=== PATIENT | male | born 1960 | race Caucasian/White ===

== ENCOUNTER → 2021-05-04 15:32 | Outpatient (CLI) | payer MEDICAID, SELFPAY ==
--- NOTE | 2021-05-04 15:44 | RAD_ITS ---
History: cad EXAMINATION/TECHNIQUE: XR Chest 2 Views: COMPARISON: None FINDINGS: LINES/DEVICES: None. LUNGS: No consolidation, edema or effusion. No pneumothorax. MEDIASTINUM AND CARDIOVASCULAR STRUCTURES: Cardiac silhouette not enlarged. Central airways and mediastinal contour are unremarkable. BONES AND SOFT TISSUES: Unremarkable. RAD/Chest PA and Lateral IMPRESSION: No radiographic evidence of acute cardiopulmonary disease. at 1706 Reported and signed by: Joe Turpin MD Electronically Signed: Joe Turpin MD at 17:05 EST Tel , Service support ,
[2021-05-04 16:20] LABS: Absolute Lymphocyte Count 2.55 X10^3/uL (0.83-4.51); Absolute Neutrophil Count 3.1 X10^3/uL (2.0-7.7); Basophil# 0.02 X10^3/uL; Basophil% 0.3 % (0-1); Eosinophil# 0.09 X10^3/uL; Eosinophils% 1.5 % (0-5); Hematocrit 39.5 % (40-54); Hemoglobin 13.2 g/dL (13.0-16.5); Lymphocyte # 2.55 X10^3/ul (0.83-4.51); Lymphocyte % 41.1 % (19-41); Mean Corp Hgb Conc 33.4 g/dL (32-36); Mean Corpuscular Hgb 30.9 pg (27.0-32.0); Mean Corpuscular Volume 92.5 fL (80-94); Mean Platelet Vol. 9.6 fl (6.2-12.0); Monocyte# 0.41 X10^3/uL; Monocyte% 6.6 % (0-10); NRBC Flagged by Analyzer 0 % (0-5); Neutrophil # 3.12 X10^3/uL (2.7-7.7); Neutrophil % 50.3 % (47-70); Platelet Count 214 K/mm3 (150-450); Red Blood Count 4.27 M/mm3 (4.6-6.2); White Blood Count 6.2 K/mm3 (4.4-11.0)
[2021-05-04 16:44] LABS: Anion Gap 5 (5-15); BUN 15 mg/dL (7-18); BUN/Creat Ratio 11.3 RATIO (10-20); Calcium,Total 9.3 mg/dL (8.5-10.1); Chloride 110 mmol/L (98-107); Creatinine, Serum 1.33 mg/dL (0.70-1.30); EST Glomerular Filtration Rate 58 mL/min (>60); Est Glom Filt Rate - Afr Amer 70 mL/min (>60); Glucose 93 mg/dL (74-106); Potassium 4.3 mmol/L (3.5-5.1); Sodium Level 142 mmol/L (136-145)
== END ==
PROVIDERS: PCP Preventive Medicine Occupational Medicine; Referring Provider Internal Medicine Cardiovascular Disease; Visit Provider Internal Medicine Cardiovascular Disease
DX: R07.9 Chest pain, unspecified (principal); I10 Essential (primary) hypertension; Z95.5 Presence of coronary angioplasty implant and graft
CPT/HCPCS: 36415; 71046; 80048; 85025

== ENCOUNTER 2021-05-14 08:42 | Day surgery (SDC) | payer MEDICAID, SELFPAY ==
[2021-05-10 09:59] VITALS: BMI 25.8
--- NOTE | 2021-05-14 11:55 | CL.D_ITS ---
Patient Name: MADY FLORES I Study Date: 05/14/2021 Performing: Rashaun Hernandez MD Ht: 68.89 inches 175 cm : 1960 Wt: 174.17 lbs 79 kg Age: 60 Gender: male BSA: 1.95 PROCEDURE(S) PERFORMED DC01-(25901)LHC/COR/LV CLINICAL PROFILE AND INDICATIONS Indications: Suspected CAD Heart Failure: None Stress/Imaging Date: 04/05/2021tress Test with SPECT MPI: Positive Low Risk CAD Presentations: Unstable angina. CONCLUSIONS Previously placed stent patent in LAD with ostial diagonal RECOMMENDATIONS Medical therapy DESCRIPTION OF PROCEDURE The patient arrived to the procedure lab. The risks and benefits of the procedure as well as a full d escription of our services here and current unavailability of surgical backup were fully explained to the patient and/or their significant other prior to the catheterization. The Timeout was completed, verifying the correct patient and procedure. The patient's procedural site was prepped and draped in the usual fashion. Local anesthetic was given subcutaneously to right radial region with Lidocaine 2% . Using a modified Seldinger technique, arterial access was obtained via the right radial artery, a 6 Fr sheath was inserted. Right Coronary Artery selective angiography was then performed in multiple v iews using a 5 Fr. 4.0 Delavan catheter. Left Coronary Artery selective angiography was performed in mu ltiple views using a 5 Fr. 4.0 Delavan catheter. Left Ventriculography was performed in ROLDAN projection using a 5 Fr. Pigtail catheter. LV to AO pullback pressures were then recorded.The arterial sheath was pulled and a TR Band was applied for hemostasis - 10cc air CORONARY ANGIOGRAPHY DOMINANCE: Right Dominant LEFT HEART ASSESSMENT Left Ventricular Ejection Fraction: by LV Gram 70 % Normal LV wall motion Normal Left Ventricular systolic function LEFT MAIN: Angiographically normal LEFT ANTERIOR DESCENDING ARTERY: MID LAD: Previously placed stent is patent DIAGONAL 1: Ostial - 80 % Stenosis CIRCUMFLEX ARTERY: Mild luminal irregularities RIGHT CORONARY ARTERY: Mild luminal irregularities less than 30% COMPLICATIONS No Complications PROCEDURE MEDICATIONS Fentanyl 50 mcg IV Versed 1 mg IV Oxygen: 2 L/min via nasal cannula Heparin given IA 05/14/2021 10:52:11 Verapamil 2.5mg, Ntg 100mcgs, 3000 units of Heparin given IA 05/14/2021 10:52:11 SUMMARY OF HEMODYNAMIC DATA Time AIR REST ECG 09:06:57 AO 141/78 (102) SA 10:54:27 LV 153/20, 36 11:08:11 LV 156/20, 30 11:08:19 LV 162/23, 35 11:09:23 LV 160/23, 34 11:09:29 LVp 147/24, 32 11:09:37 AOp 154/79 (110) 11:09:42 RM AIR REST 11:22:13 Signed By Rashaun Hernandez MD On 05/14/2021 11:54:47 AM Rashaun Hernandez MD
== END 2021-05-14 12:50 | disposition home or self-care (01) ==
LOC: CLSP 08:44
PROVIDERS: PCP Preventive Medicine Occupational Medicine; Referring Provider Internal Medicine Cardiovascular Disease; Visit Provider Internal Medicine Cardiovascular Disease
DX: I25.110 Atherosclerotic heart disease of native coronary artery with unstable angina pectoris (principal); J44.9 Chronic obstructive pulmonary disease, unspecified; I10 Essential (primary) hypertension; I73.9 Peripheral vascular disease, unspecified; K21.9 Gastro-esophageal reflux disease without esophagitis; F32.A Depression, unspecified; F17.200 Nicotine dependence, unspecified, uncomplicated; Z79.02 Long term (current) use of antithrombotics/antiplatelets; Z79.82 Long term (current) use of aspirin; Z79.890 Hormone replacement therapy; Z98.62 Peripheral vascular angioplasty status; Z95.5 Presence of coronary angioplasty implant and graft
CPT/HCPCS: 93458; 99152; 99153; J7040; Q9967; C1769; C1894

== ENCOUNTER 2021-07-04 08:03 | Outpatient (CLI) | payer MEDICAID, SELFPAY ==
--- NOTE | 2021-07-04 08:25 | RAD_ITS ---
STUDY: X-RAY CHEST REASON FOR EXAM: Male, 60 years old. CHEST PAIN SOB / SOA COMPARISON: 05/04/2021 TECHNIQUE: XR Chest 2 Views FINDINGS: There is no demonstrated pleural abnormality. Normal heart size. Normal mediastinum and jessy. Normal visualized pulmonary arteries. There is atherosclerotic calcification of the aortic arch with tortuosity. There is no demonstrated abnormality of the visualized soft tissue structures of the upper abdomen. RAD/Chest PA and Lateral IMPRESSION: There are no acute findings. Electronically Signed: Bryson Turk MD at 16:06 EST Reading Location ID and State: [facility] / [place] , Service support ,
[2021-07-04 08:36] LABS: Hematocrit 40.7 % (40-54); Hemoglobin 13.8 g/dL (13.0-16.5); Mean Corp Hgb Conc 33.9 g/dL (32-36); Mean Corpuscular Hgb 31.6 pg (27.0-32.0); Mean Corpuscular Volume 93.1 fL (80-94); Mean Platelet Vol. 9.5 fl (6.2-12.0); Platelet Count 200 K/mm3 (150-450); RBC Distribution Width CV 12.9 % (11.6-14.6); RBC Distribution Width SD 44.3 fl (35.1-43.9); Red Blood Count 4.37 M/mm3 (4.6-6.2); White Blood Count 6.6 K/mm3 (4.4-11.0)
[2021-07-04 08:54] LABS: BNP,B-Type NATRIURETIC PEPTIDE 35.7 pg/mL (0-100)
[2021-07-04 08:58] LABS: Anion Gap 6 (5-15); BUN 14 mg/dL (7-18); BUN/Creat Ratio 11.1 RATIO (10-20); Calcium,Total 8.8 mg/dL (8.5-10.1); Chloride 104 mmol/L (98-107); Creatinine, Serum 1.26 mg/dL (0.70-1.30); EST Glomerular Filtration Rate 62 mL/min (>60); Est Glom Filt Rate - Afr Amer 74 mL/min (>60); Glucose 107 mg/dL (74-106); Potassium 4.7 mmol/L (3.5-5.1); Sodium Level 137 mmol/L (136-145)
== END 2021-07-04 23:59 | disposition home or self-care (01) ==
LOC: LAB 08:04
PROVIDERS: PCP Preventive Medicine Occupational Medicine; Referring Provider Nurse Practitioner Family; Visit Provider Nurse Practitioner Family
DX: R06.02 Shortness of breath (principal); I25.10 Atherosclerotic heart disease of native coronary artery without angina pectoris; R00.2 Palpitations; I10 Essential (primary) hypertension
CPT/HCPCS: 36415; 71046; 80048; 83880; 85027

== ENCOUNTER 2022-01-07 17:10 | Observation (INO) | payer MEDICAID, SELFPAY ==
[2022-01-07] VITALS (7 sets, daily range): BP systolic 130–171; BP diastolic 66–84; PULSE 61–86; RESP 16–18; TEMP 36.6–37.1; O2SAT 96–100; BMI 24.8
--- NOTE | 2022-01-07 17:09 | EKG12_ITS ---
Test Reason : ADMIT EKG Blood Pressure : / mmHG Vent. Rate : 070 BPM Atrial Rate : 070 BPM P-R Int : 142 ms QRS Dur : 072 ms QT Int : 404 ms P-R-T Axes : 056 037 060 degrees QTc Int : 436 ms Normal sinus rhythm Normal ECG Confirmed by KIRK QUEEN, PATRICIA ([id number]), graphic editor EVER GONZALEZ ([id number]) on 01/09/2022 11:35:59 AM Referred By: Confirmed By:PATRICIA BRADLEY MD
--- NOTE | 2022-01-07 17:18 | PCM.HP.STD ---
Documented by User: BYRON Alcaraz 01/07/22 17:29 HPI - General General Date of Admission: 01/07/22 Date of Service: 01/07/22 Chief Complaint: Chest pain HPI Narrative MADY FLORES, is a 61 M who presents from [facility] where patient presented with chest pain. Patient states that he has had increased chest pain over the past 2 days mostly on the left side and it has radiated to his back at times. Patient states that he is also been coughing more than normal and has been coughing clear white thick sputum. Patient had complete cardiac work-up at [facility] ER. Troponins were 27, 28 and 30. Patient D-dimer elevated at outside facility and a subsequent CT chest and abdomen was obtained which showed no PE however it was positive for bilateral infiltrates. As well as central bronchial wall thickening. Patient reports that he has a history of COPD, CAD, PAD, hyperlipidemia, hypertension, depression and anxiety. Patient was transferred to [facility] for further evaluation of chest pain as patient is established here with [facility] and has had his cardiac care here previously. [facility] Medical History Atherosclerotic heart disease of [place] coronary artery without angina pectoris COPD (chronic obstructive pulmonary disease) Depression Essential hypertension Former smoker GERD (gastroesophageal reflux disease) Peripheral vascular occlusive disease Tobacco dependence Home Medications aspirin 81 mg tablet,delayed release (Adult Low Dose Aspirin) 81 mg PO DAILY 05/04/21 [History Last Taken 05/14/21] atorvastatin 80 mg tablet 80 mg PO QHS 05/04/21 [History Last Taken Unknown] clopidogrel 75 mg tablet 75 mg PO DAILY 05/04/21 [History Last Taken 05/14/21] fluticasone 250 mcg-salmeterol 50 mcg/dose blistr powdr for inhalation 1 inh inhalation PRN PRN Congestion 05/04/21 [History Last Taken Unknown] pantoprazole 40 mg tablet,delayed release 40 mg PO BID gerd 05/04/21 [History Last Taken 05/14/21] quetiapine 200 mg tablet 200 mg PO DAILY anxiety 05/04/21 [History Last Taken Unknown] venlafaxine 150 mg tablet,extended release 24 hr 150 mg PO DAILY anxiety/depression 05/04/21 [History Last Taken Unknown] clonazepam 0.5 mg tablet 0.5 mg PO TID PRN Anxiety 11/27/21 [History Last Taken Unknown] levothyroxine 88 mcg tablet 88 mcg PO DAILY thyroid 11/27/21 [History Last Taken Unknown] atenolol 25 mg tablet 25 mg PO DAILY #90 tabs 12/13/21 [Rx Last Taken Unknown] Allergy/AdvReac Type Severity Reaction Status Date / Time ranolazine [From Ranexa] AdvReac Intermediate OK with Verified 11/27/21 13:44 500 mg bid, but 1000 mg made him SOB Surgical History History of angioplasty of peripheral vessel (2009) History of cholecystectomy History of coronary artery stent placement (10/06/19) History of left heart catheterization (05/14/21) S/P femoral-femoral bypass surgery (09/2012) Social History Smoking Status: Former smoker how long ago did patient quit smoking: August 2020 alcohol intake: never substance use type: does not use caffeine: Yes Type: coffee Number of servings: 2 ROS Constitutional Constitutional: Denies anorexia, chills, fatigue, fever(s), malaise or weakness Cardiovascular Cardiovascular: Reports chest pain; Denies edema, palpitations or syncope Respiratory/Chest Respiratory/Chest: Reports cough and wheezing; Denies shortness of breath at rest or shortness of breath with exertion Gastrointestinal Gastrointestinal: Denies abdominal pain, constipation, diarrhea, nausea or vomiting Genitourinary Genitourinary: Denies dysuria Musculoskeletal Musculoskeletal: Denies back pain, extremity pain, joint pain or joint stiffness Integumentary Integumentary: Denies dry skin Neurologic Neurologic: Denies abnormal gait, abnormal speech, confusion, dizziness or focal weakness Psychiatric Psychiatric: Denies anxiety or depression Endocrine Endocrinology: Denies change in body appearance Hematologic/Lymphatic Hematologic/Lymphatic: Denies anemia Vital Signs Vital Signs Vital Signs: Weight Weight: 168 lb 8 oz Body Mass Index (BMI) 24.8 Physical Exam Const alert, oriented x3 and no apparent distress General Appearance: cooperative HEENT normocephalic and head/scalp atraumatic Eyes conjunctivae normal and no scleral icterus Neck supple General: trachea midline Resp normal respiratory effort and normal air movement Auscultation: wheezes left lower, anterior and posterior Cardio regular rate, regular rhythm, S1 normal heart sound and S2 normal heart sound GI normal to inspection, nondistended, normoactive bowel sounds, soft to palpation and non-tender Extremity normal capillary refill and no clubbing, cyanosis or edema Skin General Skin Exam: no breakdown Lesions: no lesions Rashes: no rashes Neuro no focal motor deficits and no sensory deficits noted Speech: speech normal Psych thought process normal, cooperative and affect normal Assessment & Plan Assessment/Plan (1) Pneumonia: (2) Hyperlipidemia: (3) Essential hypertension: (4) Peripheral vascular occlusive disease: (5) Atherosclerotic heart disease of [place] coronary artery without angina pectoris: PLAN: Plan 1. Chest pain -Admit to PCU -PE ruled out, likely pneumonia but as it patient has a cardiac history will continue to trend troponins overnight -Azithromycin and ceftriaxone given at outside ER, will continue -Scheduled and as needed breathing treatments ordered, hold home inhalers -Oxygen per protocol, currently on room air -Sputum culture ordered -CBC and BMP ordered for a.m. -Mucinex ordered -Chest x-ray and EKG ordered for a.m. -Cardiac diet -Encourage incentive spirometry 2. COPD -Hold home inhalers -See #1 3. Hypertension -Continue atenolol -As needed hydralazine -Vital signs per protocol 4. CAD/PVD -Continue aspirin and Plavix 5. Hyperlipidemia -Continue atorvastatin 6. Hypothyroidism -TSH in a.m. -Continue levothyroxine 7. Anxiety and depression -Continue home regimen including clonazepam, Seroquel, Effexor DVT prophylaxis-subcu Lovenox This patient was seen by Cristine Arrieta NP-C under the supervision of Dr. Albright. 29 minutes spent in clinical coordination of patient's plan of care. Documented by User: Dr. Sammi Albright MD 01/07/22 18:21 HPI - General General Date of Admission: 01/07/22 [facility] Medical History Atherosclerotic heart disease of [place] coronary artery without angina pectoris COPD (chronic obstructive pulmonary disease) Depression Essential hypertension Former smoker GERD (gastroesophageal reflux disease) Peripheral vascular occlusive disease Tobacco dependence Home Medications aspirin 81 mg tablet,delayed release (Adult Low Dose Aspirin) 81 mg PO DAILY 05/04/21 [History Last Taken 05/14/21] atorvastatin 80 mg tablet 80 mg PO QHS 05/04/21 [History Last Taken Unknown] clopidogrel 75 mg tablet 75 mg PO DAILY 05/04/21 [History Last Taken 05/14/21] fluticasone 250 mcg-salmeterol 50 mcg/dose blistr powdr for inhalation 1 inh inhalation PRN PRN Congestion 05/04/21 [History Last Taken Unknown] pantoprazole 40 mg tablet,delayed release 40 mg PO BID gerd 05/04/21 [History Last Taken 05/14/21] quetiapine 200 mg tablet 200 mg PO DAILY anxiety 05/04/21 [History Last Taken Unknown] venlafaxine 150 mg tablet,extended release 24 hr 150 mg PO DAILY anxiety/depression 05/04/21 [History Last Taken Unknown] clonazepam 0.5 mg tablet 0.5 mg PO TID PRN Anxiety 11/27/21 [History Last Taken Unknown] levothyroxine 88 mcg tablet 88 mcg PO DAILY thyroid 11/27/21 [History Last Taken Unknown] atenolol 25 mg tablet 25 mg PO DAILY #90 tabs 12/13/21 [Rx Last Taken Unknown] Allergy/AdvReac Type Severity Reaction Status Date / Time ranolazine [From Ranexa] AdvReac Intermediate OK with Verified 11/27/21 13:44 500 mg bid, but 1000 mg made him SOB Surgical History History of angioplasty of peripheral vessel (2009) History of cholecystectomy History of coronary artery stent placement (10/06/19) History of left heart catheterization (05/14/21) S/P femoral-femoral bypass surgery (09/2012) Social History Smoking Status: Former smoker how long ago did patient quit smoking: August 2020 alcohol intake: never substance use type: does not use caffeine: Yes Type: coffee Number of servings: 2 Assessment & Plan Assessment/Plan (1) Pneumonia: (2) Hyperlipidemia: (3) Essential hypertension: (4) Peripheral vascular occlusive disease: (5) Atherosclerotic heart disease of [place] coronary artery without angina pectoris: Charges/Coding Addendum Addendum: Patient seen by Cristine MATTHEWS under my supervision Patient is a 61-year-old male with past medical history as outlined including CAD s/p stents was admitted as a direct transfer from outside hospital with complaint of chest pain. He said chest pain started in the early hours of the day of admission and was left-sided and radiated to his back. It was persistent so he went to the ED at outside hospital. He admitted to associated shortness of breath and a cough which was productive of clear sputum. He denied any palpitations or dizziness or fever or chills. Review of systems otherwise negative. D-dimer at outside hospital was elevated and a CTA of the chest that showed no evidence of PE but showed evidence of bilateral infiltrates and emphysema as well as central bronchial wall thickening. Initial high-sensitivity troponin was 27 and naldo to 28 and peaked at 30. He was given a dose of therapeutic Lovenox at outside hospital due to concern for non-STEMI. CBC showed WBC of 7.1 in outside hospital. EKG showed no acute ST changes. He was started on IV ceftriaxone and azithromycin and transferred to [facility] for further management. O/E: Const alert, oriented x3 and no apparent distress General Appearance: cooperative HEENT normocephalic, head/scalp atraumatic, hearing grossly normal bilaterally and moist oral mucous membranes Eyes PERRL, EOMs intact bilaterally and conjunctivae normal Neck no lymphadenopathy, supple and no JVD Resp mildly diminished breath sounds bibasally, no wheezes or crackles. On room air Cardio regular rate, regular rhythm, S1 normal heart sound, S2 normal heart sound and no murmurs GI normal to inspection, nondistended, normoactive bowel sounds and soft to palpation GI Narrative: abdominal dressing over surgical site Extremity normal to inspection, full ROM and no clubbing, cyanosis or edema Skin no rashes or lesions noted Neuro oriented x3, CN's II-XII intact bilaterally and moves all extremities Sensorium / Orientation: awake and alert Psych affect normal Assessment and plan #Chest pain to rule out ACS did have some chest pain, but it seems more due to probable pneumonia/bronchitis as it is pleuritic CTA at outside hospital was negative for PE admit to PCU cycle troponins; they were 27, 28 and 30 at outside hospital start on IV ceftriaxone and azithromycin urine for strep and legionella antigens; check CBC, BMP sputum cultures hydrate gently with IVF #Community acquired pneumonia vs bronchitis: as above #COPD: not in exacerbation. Breathing treatment with bronchodilators. Titrate oxygen to maintain sats >90% #CAD s/p stents: on aspirin, statin and atenolol #History of PAD s/p stents #DEpression: on seroquel, clonazepam and effexor #HYpothyroidism: on synthroid DVT prophylaxis: lovenox Code status: full code Patient counseled extensively about different types of CODE STATUS including full code, DNR CCA and DNR CCA. Patient elects to be full code. Total [id number] time 16 minutes. Total time I spent on patient's care today- 34 mins, with Cristine Arrieta [employer]PARTMENT [employer]TER-C spending 29 mins, making a total of 63 mins. Rest as per Cristine Arrieta NP-C's note, which I have reviewed and endorsed Visit Charges Inpatient E&M: 31132 Init Hosp L3 Procedures Hospitalists Procedures: 82449 Advncd Care Plan 30 Min
[2022-01-07 18:10] LABS: Absolute Lymphocyte Count 2.67 X10^3/uL (0.83-4.51); Absolute Neutrophil Count 4.6 X10^3/uL (2.0-7.7); Basophil# 0.02 X10^3/uL; Basophil% 0.3 % (0-1); Eosinophil# 0.13 X10^3/uL; Eosinophils% 1.6 % (0-5); Hematocrit 39.5 % (40-54); Hemoglobin 13.5 g/dL (13.0-16.5); Lymphocyte # 2.67 X10^3/ul (0.83-4.51); Lymphocyte % 33.5 % (19-41); Mean Corp Hgb Conc 34.2 g/dL (32-36); Mean Corpuscular Hgb 31.8 pg (27.0-32.0); Mean Corpuscular Volume 92.9 fL (80-94); Mean Platelet Vol. 9.6 fl (6.2-12.0); Monocyte# 0.57 X10^3/uL; Monocyte% 7.2 % (0-10); NRBC Flagged by Analyzer 0 % (0-5); Neutrophil # 4.55 X10^3/uL (2.7-7.7); Neutrophil % 57.1 % (47-70); Platelet Count 208 K/mm3 (150-450); RBC Distribution Width CV 12.4 % (11.6-14.6); RBC Distribution Width SD 42.4 fl (35.1-43.9); Red Blood Count 4.25 M/mm3 (4.6-6.2)
[2022-01-07 18:12] LABS: Troponin-I HS 53 pg/mL (3.0-78.0)
[2022-01-07] MEDS: Ipratropium/Albuterol Sulfate 3 ML AMPUL.NEB INHALATION (19:19)
[2022-01-07 19:54] LABS: ALB/GLOB Ratio 0.9 RATIO (0.9-2.4); AST(SGOT) 14 U/L (15-37); Alanine Aminotransfer ALT/SGPT 21 U/L (16-61); Albumin, Serum 2.9 g/dL (3.2-5.0); Alkaline Phosphatase 94 U/L (45-117); Anion Gap 7 (5-15); BUN 8 mg/dL (7-18); BUN/Creat Ratio 6.8 RATIO (10-20); Calcium,Total 8.2 mg/dL (8.5-10.1); Chloride 112 mmol/L (98-107); Creatinine, Serum 1.18 mg/dL (0.70-1.30); EST Glomerular Filtration Rate 66 mL/min (>60); Est Glom Filt Rate - Afr Amer 80 mL/min (>60); Estimated Creatinine Clearance 64.08 ml/min; Globulin 3.4 g/dL (2.2-4.2); Glucose 124 mg/dL (74-106); Potassium 3.5 mmol/L (3.5-5.1); Protein, Total 6.3 g/dL (6.4-8.2); Sodium Level 141 mmol/L (136-145); Troponin-I HS 52 pg/mL (3.0-78.0)
[2022-01-07] MEDS: Atorvastatin Calcium 80 MG Tablet PO (21:40)
[2022-01-07] MEDS: guaiFENesin 1,200 MG Tablet 1200 MG PO (21:40)
[2022-01-07] MEDS: Pantoprazole Sodium 40 MG Tablet PO (21:40)
[2022-01-07] MEDS: 0.9% Saline Lock 10 ML Syringe IV (21:44)
[2022-01-07 23:25] LABS: Bedside Glucose 111 mg/dL (74-106)
[2022-01-07 23:56] LABS: Troponin-I HS 43 pg/mL (3.0-78.0)
[2022-01-08 00:50] VITALS: PULSE 72; RESP 16
[2022-01-08] MEDS: Ipratropium/Albuterol Sulfate 3 ML AMPUL.NEB INHALATION ×2 (00:50→06:56)
[2022-01-08 02:30] VITALS: BP 129/82; PULSE 80; RESP 15; TEMP 36.9; O2SAT 97
[2022-01-08 03:00] VITALS: PULSE 77
--- NOTE | 2022-01-08 05:55 | RAD_ITS ---
STUDY: X-RAY CHEST REASON FOR EXAM: Male, 61 years old. Chest discomfort. TECHNIQUE: PA and lateral views of the chest. COMPARISON: Comparison is made with prior study dated 01/07/2022. FINDINGS: EKG electrodes are seen. Mild increased markings at the lung bases suggestive of atelectasis. There is no demonstrated pleural abnormality. A coronary artery stent is seen. Normal mediastinum and jessy. Normal visualized pulmonary arteries. There is atherosclerotic calcification of the aortic arch with tortuosity. There are diffuse degenerative changes of the visualized thoracic spine. Normal visualized ribs, clavicles, and shoulders. Prior cholecystectomy. RAD/Chest PA and Lateral IMPRESSION: Mild increased markings at the lung bases suggestive of atelectasis. Electronically Signed: Jackson Tabares MD at 8:40 EDT ,
[2022-01-08] MEDS: Levothyroxine 88 MCG Tablet PO (06:08)
[2022-01-08 06:40] VITALS: PULSE 71
--- NOTE | 2022-01-08 06:40 | NURSING ---
all documentation completed by Sharyn OROZCO reviewed by this RN
[2022-01-08 06:51] LABS: Absolute Lymphocyte Count 1.42 X10^3/uL (0.83-4.51); Absolute Neutrophil Count 5.2 X10^3/uL (2.0-7.7); Basophil# 0.03 X10^3/uL; Basophil% 0.4 % (0-1); Eosinophil# 0.22 X10^3/uL; Hematocrit 38.3 % (40-54); Hemoglobin 12.9 g/dL (13.0-16.5); Lymphocyte # 1.42 X10^3/ul (0.83-4.51); Lymphocyte % 19.2 % (19-41); Mean Corp Hgb Conc 33.7 g/dL (32-36); Mean Corpuscular Hgb 31.5 pg (27.0-32.0); Mean Corpuscular Volume 93.6 fL (80-94); Mean Platelet Vol. 9.5 fl (6.2-12.0); Monocyte# 0.52 X10^3/uL; NRBC Flagged by Analyzer 0 % (0-5); Neutrophil % 70.1 % (47-70); Platelet Count 210 K/mm3 (150-450); RBC Distribution Width CV 12.4 % (11.6-14.6); RBC Distribution Width SD 42.5 fl (35.1-43.9); Red Blood Count 4.09 M/mm3 (4.6-6.2); White Blood Count 7.4 K/mm3 (4.4-11.0)
[2022-01-08 06:56] VITALS: PULSE 74; RESP 16; O2SAT 96
[2022-01-08 07:10] LABS: Bedside Glucose 132 mg/dL (74-106)
[2022-01-08 07:25] LABS: Anion Gap 5 (5-15); BUN 15 mg/dL (7-18); BUN/Creat Ratio 12.8 RATIO (10-20); Calcium,Total 8.8 mg/dL (8.5-10.1); Chloride 111 mmol/L (98-107); Creatinine, Serum 1.17 mg/dL (0.70-1.30); EST Glomerular Filtration Rate 67 mL/min (>60); Est Glom Filt Rate - Afr Amer 81 mL/min (>60); Estimated Creatinine Clearance 64.62 ml/min; Glucose 120 mg/dL (74-106); Sodium Level 140 mmol/L (136-145); Thyroid Stim Hormone (TSH) 0.45 uIU/mL (0.358-3.74)
[2022-01-08] MEDS: Aspirin E.C. 81 MG Tablet PO (07:45)
[2022-01-08 08:30] VITALS: BP 161/94; PULSE 93; RESP 18; TEMP 37; O2SAT 99
[2022-01-08] MEDS: Enoxaparin 40 MG/0.4 ML Syringe SC (09:07)
[2022-01-08] MEDS: Atenolol 25 MG Tablet PO (09:07)
[2022-01-08] MEDS: guaiFENesin 1,200 MG Tablet 1200 MG PO (09:07)
[2022-01-08] MEDS: Clopidogrel Bisulfate 75 MG Tablet PO (09:08)
[2022-01-08] MEDS: Pantoprazole Sodium 40 MG Tablet PO (09:08)
[2022-01-08] MEDS: Venlafaxine XR 75 MG Capsule 150 MG PO (09:08)
--- NOTE | 2022-01-08 09:36 | DCINST_ITS ---
Discharge Instructions Diet Discharge Diet: Low fat / Low cholesterol and 1800 Calorie Control Diet Activity Discharge Activity: Return to Normal Activity Dressing / Incision Call your doctor if you observe: Shortness of breath, Dizziness, Chest pain and Increased palpitations (irregular heartbeat) Follow Up Care Test Results: Test results from this visit will be discussed in further detail at your follow- up appointment, if applicable. Discharge Plan Admission Admit Date/Time: 01/07/22 16:50 Primary Reason for Your Visit: Pneumonia Attending Provider: Herberth Qiu Primary Care Provider: Skip Fleming Consulting Providers: Sammi Albright Discharge Orders/Prescriptions Prescriptions: New Mucus Relief ER 1,200 mg Tablet Extended Release 12hr 1,200 mg PO BID 5 Days Qty: 10 0RF azithromycin 250 mg tablet 250 mg PO DAILY 4 Days Qty: 4 0RF Continued aspirin [Adult Low Dose Aspirin] 81 mg tablet,delayed release (DR/EC) 81 mg PO DAILY clopidogrel 75 mg tablet 75 mg PO DAILY fluticasone propion-salmeterol 250-50 mcg/dose blister with device 1 inh inhalation PRN PRN (Reason: Congestion) pantoprazole 40 mg tablet,delayed release (DR/EC) 40 mg PO BID quetiapine 200 mg tablet 200 mg PO DAILY venlafaxine 150 mg tablet extended release 24hr 150 mg PO DAILY atorvastatin 80 mg tablet 80 mg PO QHS Label Comments: take 1 tablet by mouth once daily clonazepam 0.5 mg tablet 0.5 mg PO TID PRN (Reason: Anxiety) levothyroxine 88 mcg tablet 88 mcg PO DAILY atenolol 25 mg tablet 25 mg PO DAILY Qty: 90 3RF Referrals / Follow Up: Vaibhav Carranza MD [Med Staff - Active Staff] - Within 2 Weeks Skip Fleming DO [Primary Care Provider] - Within 2 Weeks Disposition Disposition (needs filled in before D/C Order can be placed): Home, Self Care
--- NOTE | 2022-01-08 09:42 | PCM.DC.SUM ---
Documented by User: Cristine Arrieta NP-C 01/08/22 09:51 Providers Date of Admission: 01/07/22 Date of Discharge: 01/08/22 Primary Care Physician: Dr. Skip Fleming DO Reason For Visit: NON STEMI- CHEST PAIN Diagnosis Discharge Diagnosis (1) Pneumonia: Status: Acute Code(s): J18.9 - Pneumonia, unspecified organism (2) Hyperlipidemia: Status: Acute Code(s): E78.5 - Hyperlipidemia, unspecified (3) Essential hypertension: Status: Acute Code(s): I10 - Essential (primary) hypertension (4) Peripheral vascular occlusive disease: Status: Chronic Code(s): I73.9 - Peripheral vascular disease, unspecified (5) Atherosclerotic heart disease of [place] coronary artery without angina pectoris: Status: Acute Code(s): I25.10 - Atherosclerotic heart disease of [place] coronary artery without angina pectoris Plan 1. Chest pain -Admit to PCU -PE ruled out, likely pneumonia but as it patient has a cardiac history will continue to trend troponins overnight -Azithromycin and ceftriaxone given at outside ER, will continue -Scheduled and as needed breathing treatments ordered, hold home inhalers -Oxygen per protocol, currently on room air -Sputum culture ordered -CBC and BMP ordered for a.m. -Mucinex ordered -Chest x-ray and EKG ordered for a.m. -Cardiac diet -Encourage incentive spirometry 2. COPD -Hold home inhalers -See #1 3. Hypertension -Continue atenolol -As needed hydralazine -Vital signs per protocol 4. CAD/PVD -Continue aspirin and Plavix 5. Hyperlipidemia -Continue atorvastatin 6. Hypothyroidism -TSH in a.m. -Continue levothyroxine 7. Anxiety and depression -Continue home regimen including clonazepam, Seroquel, Effexor DVT prophylaxis-subcu Lovenox This patient was seen by Cristine Arrieta NP-C under the supervision of Dr. Albright. 29 minutes spent in clinical coordination of patient's plan of care. Medications at Discharge Home Medications aspirin 81 mg tablet,delayed release (Adult Low Dose Aspirin) 81 mg PO DAILY 05/04/21 atorvastatin 80 mg tablet 80 mg PO QHS 05/04/21 clopidogrel 75 mg tablet 75 mg PO DAILY 05/04/21 fluticasone 250 mcg-salmeterol 50 mcg/dose blistr powdr for inhalation 1 inh inhalation PRN PRN Congestion 05/04/21 pantoprazole 40 mg tablet,delayed release 40 mg PO BID gerd 05/04/21 quetiapine 200 mg tablet 200 mg PO DAILY anxiety 05/04/21 venlafaxine 150 mg tablet,extended release 24 hr 150 mg PO DAILY anxiety/depression 05/04/21 clonazepam 0.5 mg tablet 0.5 mg PO TID PRN Anxiety 11/27/21 levothyroxine 88 mcg tablet 88 mcg PO DAILY thyroid 11/27/21 atenolol 25 mg tablet 25 mg PO DAILY #90 tabs 12/13/21 azithromycin 250 mg tablet 250 mg PO DAILY 4 days #4 tabs 01/08/22 cefdinir 300 mg capsule 300 mg PO BID #6 caps 01/08/22 guaifenesin 1,200 mg tablet, extended release 12 hr (Mucus Relief ER) 1,200 mg PO BID 5 days #10 tabs 01/08/22 Hospital Course Operations None Procedures None Summary of Care Provided Minutes Spent on Discharge: 25 Hospital Course: Patient is a 61-year-old male who initially presented from an outside facility with complaints of chest pain and cough and shortness of breath with exertion. Patient underwent CTA chest and abdomen which demonstrated bibasilar infiltrates and patient was treated for pneumonia in the ER with ceftriaxone and azithromycin. Due to patient's history of CAD and previous stent placement patient was transferred to [facility] for further cardiac evaluation as patient had troponin of 30. Patient underwent another troponin series upon admission to [facility] which were 53, 52, 43. This is likely secondary to patient's pneumonia and work of breathing and shortness of breath. Patient reports tightness upon taking a deep breath. Patient will be discharged home with p.o. azithromycin as well as Mucinex and instructions to follow-up with his primary care as well as cardiology. Physical Exam Const alert, oriented x3 and no apparent distress General Appearance: cooperative HEENT normocephalic and head/scalp atraumatic Eyes conjunctivae normal and no scleral icterus Neck supple General: trachea midline Resp normal respiratory effort and normal air movement Auscultation: wheezes expiratory wheezes and scattered wheezes and diminished lung sounds Cardio regular rate, regular rhythm, S1 normal heart sound and S2 normal heart sound GI normal to inspection, nondistended, normoactive bowel sounds, soft to palpation and non-tender Extremity normal capillary refill and no clubbing, cyanosis or edema Skin General Skin Exam: no breakdown Lesions: no lesions Rashes: no rashes Neuro no focal motor deficits and no sensory deficits noted Speech: speech normal Psych thought process normal, cooperative and affect normal Weight / BMI Weight Weight: 167 lb 1.766 oz Body Mass Index (BMI) 24.8 ABG / Lab / Microbiology Data Result Diagrams: 01/08/22 06:25 01/08/22 06:25 Laboratory: Laboratory Results - last 24 hr 01/07/22 17:40: Troponin I High Sens 53 01/07/22 17:40: WBC 8.0, RBC 4.25 L, Hgb 13.5, Hct 39.5 L, MCV 92.9, MCH 31.8, MCHC 34.2, RDW Std Deviation 42.4, RDW Coeff of Sherry 12.4, Plt Count 208, MPV 9.6, Immature Gran % (Auto) 0.300, Neut % (Auto) 57.1, Lymph % (Auto) 33.5, Simpson % (Auto) 7.2, Eos % (Auto) 1.6, Baso % (Auto) 0.3, Absolute Neuts (auto) 4.6, Absolute Lymphs (auto) 2.67, Nucleated RBC % 0 01/07/22 19:13: Sodium 141, Potassium 3.5, Chloride 112 H, Carbon Dioxide 22.0, Anion Gap 7, BUN 8, Creatinine 1.18, Estim Creat Clear Calc 64.08, Est GFR (MDRD) Af Amer 80, Est GFR (MDRD) Non-Af 66, BUN/Creatinine Ratio 6.8 L, Glucose 124 H, Calcium 8.2 L, Total Bilirubin 0.20, AST 14 L, ALT 21, Alkaline Phosphatase 94, Troponin I High Sens 52, Total Protein 6.3 L, Albumin 2.9 L, Globulin 3.4, Albumin/Globulin Ratio 0.9 01/07/22 21:39: POC Glucose 111 H 01/07/22 23:30: Troponin I High Sens 43 01/08/22 06:25: WBC 7.4, RBC 4.09 L, Hgb 12.9 L, Hct 38.3 L, MCV 93.6, MCH 31.5, MCHC 33.7, RDW Std Deviation 42.5, RDW Coeff of Sherry 12.4, Plt Count 210, MPV 9.5, Immature Gran % (Auto) 0.300, Neut % (Auto) 70.1 H, Lymph % (Auto) 19.2, Simpson % (Auto) 7.0, Eos % (Auto) 3.0, Baso % (Auto) 0.4, Absolute Neuts (auto) 5.2, Absolute Lymphs (auto) 1.42, Nucleated RBC % 0 01/08/22 06:25: Sodium 140, Potassium 4.0, Chloride 111 H, Carbon Dioxide 24.0, Anion Gap 5, BUN 15, Creatinine 1.17, Estim Creat Clear Calc 64.62, Est GFR (MDRD) Af Amer 81, Est GFR (MDRD) Non-Af 67, BUN/Creatinine Ratio 12.8, Glucose 120 H, Calcium 8.8, TSH 0.45 01/08/22 06:51: POC Glucose 132 H Radiography Diagnostic Testing: Radiology Impression Chest X-Ray 01/08/22 05:55 IMPRESSION: Mild increased markings at the lung bases suggestive of atelectasis. Electronically Signed: Jackson Tabares MD at 8:40 EDT , D/C Instructions Discharge Diet: Low fat / Low cholesterol and 1800 Calorie Control Diet Call your doctor if you observe: Shortness of breath, Dizziness, Chest pain and Increased palpitations (irregular heartbeat) Meaningful Use Info Meaningful Use Diagnoses (Choose all that apply): None applicable Discharge Plan Admission Admit Date/Time: 01/07/22 16:50 Primary Reason for Your Visit: Pneumonia Attending Provider: Herberth Qiu Primary Care Provider: Skip Fleming Consulting Providers: Sammi Albright Discharge Orders/Prescriptions Prescriptions: New Mucus Relief ER 1,200 mg Tablet Extended Release 12hr 1,200 mg PO BID 5 Days Qty: 10 0RF azithromycin 250 mg tablet 250 mg PO DAILY 4 Days Qty: 4 0RF cefdinir 300 mg capsule 300 mg PO BID Qty: 6 0RF Continued aspirin [Adult Low Dose Aspirin] 81 mg tablet,delayed release (DR/EC) 81 mg PO DAILY clopidogrel 75 mg tablet 75 mg PO DAILY fluticasone propion-salmeterol 250-50 mcg/dose blister with device 1 inh inhalation PRN PRN (Reason: Congestion) pantoprazole 40 mg tablet,delayed release (DR/EC) 40 mg PO BID quetiapine 200 mg tablet 200 mg PO DAILY venlafaxine 150 mg tablet extended release 24hr 150 mg PO DAILY atorvastatin 80 mg tablet 80 mg PO QHS Label Comments: take 1 tablet by mouth once daily clonazepam 0.5 mg tablet 0.5 mg PO TID PRN (Reason: Anxiety) levothyroxine 88 mcg tablet 88 mcg PO DAILY atenolol 25 mg tablet 25 mg PO DAILY Qty: 90 3RF Referrals / Follow Up: Vaibhav Carranza MD [Med Staff - Active Staff] - Within 2 Weeks Skip Fleming DO [Primary Care Provider] - Within 2 Weeks Disposition Disposition (needs filled in before D/C Order can be placed): Home, Self Care Hospital Course Summary of Care Provided Hospital Course: This patient was seen in conjunction with BYRON Alcaraz . I have independently interviewed and examined the patient and reviewed pertinent historical, laboratory, and other data. Please refer to BYRON Alcaraz note for details of this patient's presentation, findings, and recommendations. I have reviewed BYRON Alcaraz note and concur with documented findings. In brief, patient is a 61-year-old male with multiple comorbidities including coronary artery disease status post PCI who presented with chest discomfort. Imaging studies demonstrated findings consistent with pneumonia. Placed on a monitored bed [place] ruled out with serial cardiac enzymes. Patient condition is stabilized discharged home with antibiotics for pneumonia Physical Examination: GENERAL: cooperative HEENT: Atraumatic; EYES; Anicteric, Normal Conjunctiva NECK; supple, normal thyroid, RESPIRATORY: Diminished to auscultation CARDIOVASCULAR: Regular S1 S2, GI: soft, normoactive bowel sounds, : No Renal angle tenderness; EXTREMITIES: No edema, no clubbing, MUSCULOSKELETAL: no muscle wasting NEURO: Awake; no lateralizing signs. SKIN: No Rash PSYCH; Flat affect Assessment: 1. Community-acquired pneumonia 2. Chest pain 3. Coronary artery disease with previous PCI 4. COPD 5. Essential hypertension 6. Peripheral arterial disease 7. Dyslipidemia 8. Tobacco dependence 9. DVT prophylaxis Hospital course; as documented above Total time spent by myself and the advanced practice practitioner evaluating patient, reviewing labs, subsequent management decisions, discussion with patient as well as other providers 40 minutes ( 25 of which was spent by myself) Documented by User: Dr. Herberth Qiu MD 01/08/22 09:59 Providers Date of Admission: 01/07/22 Reason For Visit: NON STEMI- CHEST PAIN Diagnosis Discharge Diagnosis (1) Pneumonia: Status: Acute Code(s): J18.9 - Pneumonia, unspecified organism (2) Hyperlipidemia: Status: Acute Code(s): E78.5 - Hyperlipidemia, unspecified (3) Essential hypertension: Status: Acute Code(s): I10 - Essential (primary) hypertension (4) Peripheral vascular occlusive disease: Status: Chronic Code(s): I73.9 - Peripheral vascular disease, unspecified (5) Atherosclerotic heart disease of [place] coronary artery without angina pectoris: Status: Acute Code(s): I25.10 - Atherosclerotic heart disease of [place] coronary artery without angina pectoris Medications at Discharge Home Medications aspirin 81 mg tablet,delayed release (Adult Low Dose Aspirin) 81 mg PO DAILY 05/04/21 atorvastatin 80 mg tablet 80 mg PO QHS 05/04/21 clopidogrel 75 mg tablet 75 mg PO DAILY 05/04/21 fluticasone 250 mcg-salmeterol 50 mcg/dose blistr powdr for inhalation 1 inh inhalation PRN PRN Congestion 05/04/21 pantoprazole 40 mg tablet,delayed release 40 mg PO BID gerd 05/04/21 quetiapine 200 mg tablet 200 mg PO DAILY anxiety 05/04/21 venlafaxine 150 mg tablet,extended release 24 hr 150 mg PO DAILY anxiety/depression 05/04/21 clonazepam 0.5 mg tablet 0.5 mg PO TID PRN Anxiety 11/27/21 levothyroxine 88 mcg tablet 88 mcg PO DAILY thyroid 11/27/21 atenolol 25 mg tablet 25 mg PO DAILY #90 tabs 12/13/21 azithromycin 250 mg tablet 250 mg PO DAILY 4 days #4 tabs 01/08/22 cefdinir 300 mg capsule 300 mg PO BID #6 caps 01/08/22 guaifenesin 1,200 mg tablet, extended release 12 hr (Mucus Relief ER) 1,200 mg PO BID 5 days #10 tabs 01/08/22 Hospital Course Operations None Procedures None ABG / Lab / Microbiology Data Result Diagrams: 01/08/22 06:25 01/08/22 06:25 Discharge Plan Admission Admit Date/Time: 01/07/22 16:50 Primary Reason for Your Visit: Pneumonia Attending Provider: Herberth Qiu Primary Care Provider: Skip Fleming Consulting Providers: Sammi Albright Discharge Orders/Prescriptions Prescriptions: New Mucus Relief ER 1,200 mg Tablet Extended Release 12hr 1,200 mg PO BID 5 Days Qty: 10 0RF azithromycin 250 mg tablet 250 mg PO DAILY 4 Days Qty: 4 0RF cefdinir 300 mg capsule 300 mg PO BID Qty: 6 0RF Continued aspirin [Adult Low Dose Aspirin] 81 mg tablet,delayed release (DR/EC) 81 mg PO DAILY clopidogrel 75 mg tablet 75 mg PO DAILY fluticasone propion-salmeterol 250-50 mcg/dose blister with device 1 inh inhalation PRN PRN (Reason: Congestion) pantoprazole 40 mg tablet,delayed release (DR/EC) 40 mg PO BID quetiapine 200 mg tablet 200 mg PO DAILY venlafaxine 150 mg tablet extended release 24hr 150 mg PO DAILY atorvastatin 80 mg tablet 80 mg PO QHS Label Comments: take 1 tablet by mouth once daily clonazepam 0.5 mg tablet 0.5 mg PO TID PRN (Reason: Anxiety) levothyroxine 88 mcg tablet 88 mcg PO DAILY atenolol 25 mg tablet 25 mg PO DAILY Qty: 90 3RF Referrals / Follow Up: Vaibhav Carranza MD [Med Staff - Active Staff] - Within 2 Weeks Skip Fleming DO [Primary Care Provider] - Within 2 Weeks Disposition Disposition (needs filled in before D/C Order can be placed): Home, Self Care Charges/Coding Visit Charges OBSV E&M: 18649 Observation care discharge Hospital Course Imaging Results Imaging Results: 01/08/22 05:55 Chest PA and Lateral [RAD] AM (NON MEDS) Operations None Procedures Procedures: None Summary of Care Provided Hospital Course: This patient was seen in conjunction with BYRON Alcaraz . I have independently interviewed and examined the patient and reviewed pertinent historical, laboratory, and other data. Please refer to BYRON Alcaraz note for details of this patient's presentation, findings, and recommendations. I have reviewed BYRON Alcaraz note and concur with documented findings. In brief, patient is a 61-year-old male with multiple comorbidities including coronary artery disease status post PCI who presented with chest discomfort. Imaging studies demonstrated findings consistent with pneumonia. Placed on a monitored bed [place] ruled out with serial cardiac enzymes. Patient condition is stabilized discharged home with antibiotics for pneumonia Physical Examination: GENERAL: cooperative HEENT: Atraumatic; EYES; Anicteric, Normal Conjunctiva NECK; supple, normal thyroid, RESPIRATORY: Diminished to auscultation CARDIOVASCULAR: Regular S1 S2, GI: soft, normoactive bowel sounds, : No Renal angle tenderness; EXTREMITIES: No edema, no clubbing, MUSCULOSKELETAL: no muscle wasting NEURO: Awake; no lateralizing signs. SKIN: No Rash PSYCH; Flat affect Assessment: 1. Community-acquired pneumonia 2. Chest pain 3. Coronary artery disease with previous PCI 4. COPD 5. Essential hypertension 6. Peripheral arterial disease 7. Dyslipidemia 8. Tobacco dependence 9. DVT prophylaxis Hospital course; as documented above Total time spent by myself and the advanced practice practitioner evaluating patient, reviewing labs, subsequent management decisions, discussion with patient as well as other providers 40 minutes ( 25 of which was spent by myself)
--- NOTE | 2022-01-08 10:43 | PHA.DC.MC ---
Pharmacy Service has performed discharge medication reconciliation and counseling for this patient. 1. AZITHROMYCIN 250MG PO DAILY X 4 DAYS 2. CEFDINIR 300MG PO BID X 3 DAYS 3. GUAIFENESIN 1200MG PO BID X 5 DAYS The patient's discharge medication list was reviewed for discrepancies and discrepancies were resolved. Home Medications aspirin 81 mg tablet,delayed release (Adult Low Dose Aspirin) 81 mg PO DAILY 05/04/21 atorvastatin 80 mg tablet 80 mg PO QHS 05/04/21 clopidogrel 75 mg tablet 75 mg PO DAILY 05/04/21 fluticasone 250 mcg-salmeterol 50 mcg/dose blistr powdr for inhalation 1 inh inhalation PRN PRN Congestion 05/04/21 pantoprazole 40 mg tablet,delayed release 40 mg PO BID gerd 05/04/21 quetiapine 200 mg tablet 200 mg PO DAILY anxiety 05/04/21 venlafaxine 150 mg tablet,extended release 24 hr 150 mg PO DAILY anxiety/depression 05/04/21 clonazepam 0.5 mg tablet 0.5 mg PO TID PRN Anxiety 11/27/21 levothyroxine 88 mcg tablet 88 mcg PO DAILY thyroid 11/27/21 atenolol 25 mg tablet 25 mg PO DAILY #90 tabs 12/13/21 azithromycin 250 mg tablet 250 mg PO DAILY 4 days #4 tabs 01/08/22 cefdinir 300 mg capsule 300 mg PO BID #6 caps 01/08/22 guaifenesin 1,200 mg tablet, extended release 12 hr (Mucus Relief ER) 1,200 mg PO BID 5 days #10 tabs 01/08/22 The patient was counseled on the following discharge medications and changes in medications for homegoing were reviewed. The Reason for Use, instructions for use, and potential side effects were reviewed for all new medications. The patient's questions regarding all of their medications were answered. The patient was able to verbally demonstrate an understanding of their discharge medications. Patient was counseled by pharmacy picking technician, Omar.
== END 2022-01-08 09:41 | disposition home or self-care (01) ==
PROVIDERS: Nurse Practitioner Family; Admitting Provider Student in an Organized Health Care Education/Training Program; PCP Preventive Medicine Occupational Medicine; Visit Provider Internal Medicine
DX: J18.9 Pneumonia, unspecified organism (principal); J43.9 Emphysema, unspecified; I73.9 Peripheral vascular disease, unspecified; E03.9 Hypothyroidism, unspecified; E78.5 Hyperlipidemia, unspecified; Z79.82 Long term (current) use of aspirin; F32.A Depression, unspecified; Z87.891 Personal history of nicotine dependence; I10 Essential (primary) hypertension; I25.10 Atherosclerotic heart disease of native coronary artery without angina pectoris; Z79.02 Long term (current) use of antithrombotics/antiplatelets; Z79.899 Other long term (current) drug therapy; Z79.890 Hormone replacement therapy; F41.9 Anxiety disorder, unspecified; K21.9 Gastro-esophageal reflux disease without esophagitis
CPT/HCPCS: G0379; 36415; 71046; 80048; 80053; 82962; 84443; 84484; 85025; 87070; 87205; 93005; 94640; 96365; 96366; 96372; 99218; A4216; G0378; J0696